=== PATIENT | female | born 1970 | race Caucasian/White ===

== ENCOUNTER → 2023-12-17 10:37 | Outpatient (REF) | payer BC, SELFPAY ==
[2023-12-17 11:55] LABS: Ionized Calcium 1.19 mMOL/L (1.15-1.33)
[2023-12-17 12:06] LABS: % Basophils 0.8 % (0-2); % Eosinophils 1.3 % (0-6); % Immature Granulocytes 0.3 % (0-0.5); % Lymphocytes 40.8 % (20.5-51.1); % Monocytes 7.3 % (1.7-9.3); % Neutrophils 49.5 % (42.2-75.2); Absolute Eosinophils 0.1 10^3/uL (0-0.7); Absolute Lymphocytes 1.6 10^3/uL (1.2-3.4); Absolute Monocytes 0.3 10^3/uL (0.1-0.6); Hematocrit 38.5 % (37.0-47.0); Hemoglobin 12.9 g/dL (12.0-16.0); Mean Corp Hgb Conc. 33.5 g/dL (33.0-37.0); Mean Corpuscular Hgb 29.2 pg (27.0-31.0); Mean Corpuscular Volume 87.1 fL (81.0-99.0); Mean Platelet Volume 10.2 fL (7.4-10.4); Nucleated Red Blood Cells % 0 %; Platelet Count 191 10^3/uL (130-400); Red Blood Cell Count 4.42 10^6/uL (4.20-5.40); Red Cell Dist. Width 12.6 % (11.5-14.5)
[2023-12-17 14:02] LABS: ALT (SGPT) 17 U/L (0-35); AST (SGOT) 24 U/L (14-36); Albumin 4.3 g/dl (3.5-5.0); Alkaline Phosphatase 85 U/L (38-126); Blood Urea Nitrogen 19 mg/dl (7-17); Calcium 9.6 mg/dl (8.4-10.2); Carbon Dioxide 25 mmol/L (22-30); Chloride 105 mmol/L (98-107); Direct Bilirubin 0.4 mg/dl (0.0-0.4); Glucose 126 mg/dl (70-99); HDL Cholesterol 40 mg/dl; Iron 103 ug/dl (37-170); LDL Cholesterol, Calculated 83 mg/dl; Potassium 3.9 mmol/L (3.5-5.1); Sodium 141 mmol/L (135-145); Total Bilirubin 0.6 mg/dl (0.2-1.3); Total Cholesterol 145 mg/dl (50-199); Total Protein 6.7 g/dl (6.3-8.2); Triglyceride 113 mg/dl (10-149); Very Low Density Lipoprotein 22 mg/dl (0-30); eGFR > 60.00
[2023-12-17 14:37] LABS: Vitamin D, 25-OH*** 47.9 ng/mL (30-80)
[2023-12-17 14:51] LABS: TSH Reflex To Free T4 1.87 uIU/ml (0.47-4.68)
[2023-12-17 14:55] LABS: Ferritin 25.9 ng/ml (11.1-264.0)
[2023-12-17 15:27] LABS: Folate 14.7 ng/ml (2.76-20); Vitamin B12 259 pg/ml (239-931)
[2023-12-19 12:23] LABS: Intact PTH 60.6 pg/ml (13.6-85.8)
== END ==
LOC: HWLAB 10:37
PROVIDERS: ATTENDING PHYSICIAN Nurse Practitioner Adult Health
DX: Z86.39 Personal history of other endocrine, nutritional and metabolic disease (principal); Z98.84 Bariatric surgery status; K76.0 Fatty (change of) liver, not elsewhere classified; I10 Essential (primary) hypertension; E78.5 Hyperlipidemia, unspecified; G47.33 Obstructive sleep apnea (adult) (pediatric); E53.8 Deficiency of other specified B group vitamins; R10.13 Epigastric pain
CPT/HCPCS: 36415; 80053; 80061; 82248; 82306; 82330; 82607; 82728; 82746; 83540; 83970; 84425; 84443; 85025

== ENCOUNTER 2024-02-24 08:48 | Emergency (ER) | payer BC, SELFPAY ==
[2024-02-24 08:48] VITALS: BMI 27.3
[2024-02-24 08:54] VITALS: BP 120/87
--- NOTE | 2024-02-24 09:09 | ED.GENMED ---
History of Present Illness
<Cherrie Manriquez PA-C - Last Filed: 02/24/24 17:01>
General
Chief Complaint: Visual Problem
Source: patient
Exam Limitations: none
Time Seen by Provider: 02/24/24 09:06
Nursing documentation reviewed up to this point in time: agreed with
History of Present Illness
History of Present Illness:
This is a 53 y/o female with a PMH of migraines presenting emergency department today with floaters in her left visual field. 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
lower visual field of her left eye. Patient compares this to ocean waves. Patient states that this then started to happen in the upper half of her vision in her left eye as well. This lasted around 20 minutes. Patient feels there is some blurry
vision in general with this as well. Patient feels well now, no longer has any visual complaints. Patient denies any eye pain, any headaches. Patient states that she used to get migraines and she would feel right side eye pain with this but she
has not had a migraine 10 years. Denies any history of hypertension or hyperlipidemia. Denies any nausea or vomiting, paresthesias, dizziness, light headedness, neck pain, abdominal pain, fevers or chills, chest pain or shortness of breath. This
is never happened to patient before. Patient has no history of visual issues. 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
Past History
<Cherrie Manriquez PA-C - Last Filed: 02/24/24 17:01>
Past History
ED Past Medical History: None
ED Past Surgical History: None
Social History
Tobacco: Non-smoker
Alcohol: None
Drug: None
Living: with family
Review of Systems
<Cherrie Manriquez PA-C - Last Filed: 02/24/24 17:01>
Review of Systems
All Other Systems: ROS reviewed and negative except as documented in HPI and ROS
Phy Exam
<Cherrie Manriquez PA-C - Last Filed: 02/24/24 17:01>
Physical Exam
Physical Exam:
Vitals: Vital signs are stable
General: Patient is well appearing and in no acute distress; non-toxic
Skin: Warm and dry, no rashes or lesions
Head: Normocephalic, atraumatic. No temporal artery tenderness bilaterally.
Eyes: Sclera non-icteric. EOMs intact. PERRLA Patient wears glasses at baseline, visual acuity 20/50 in the right eye and 20/40 in the left eye. Visual field testing intact.
Cardiac: Regular rate and rhythm, no murmus
Peripheral Vascular: No carotid bruits bilaterally. No lower extremity swelling or edema
Pulm: Normal respiratory effort
Neuro: CN II-XII intact, no focal neurologic deficits. 5/5 strength in bilateral upper and lower extremities. Finger to nose testing intact.
Psychiatric: Appropriate mood and affect.
Course
<Cherrie Manriquez PA-C - Last Filed: 02/24/24 17:01>
Orders/Labs/Results
Orders:
Orders
02/24/24 09:41
CT Head & Neck Angio W/wo IV Urgent
Reason For Exam: transient left sided visual loss
02/24/24 10:02
Complete Blood Count/With Diff Urgent
Comprehensive Metabolic Panel Urgent
Sed Rate [Erythrocyte Sed Rate] Urgent
Abnormal Lab Results
02/24/24
10:02
RBC 3.93 L 10^6/uL
(4.20-5.40)
Hgb 11.5 L g/dL
(12.0-16.0)
Hct 35.2 L %
(37.0-47.0)
MCHC 32.7 L g/dL
(33.0-37.0)
BUN 20 H mg/dl
(7-17)
Total Protein 6.2 L g/dl
(6.3-8.2)
02/24/24 10:02
02/24/24 10:02
Vital Signs
Initial and Last Documented VS:
Initial Vital Signs
Temp Pulse Resp BP Pulse Ox
98.0 F 58 16 120/87 98
02/24/24 08:54 02/24/24 08:54 02/24/24 08:54 02/24/24 08:54 02/24/24 08:54
Last Documented Vital Signs
Temp Pulse Resp BP Pulse Ox
98.0 F 59 20 118/72 98
02/24/24 08:54 02/24/24 11:00 02/24/24 11:00 02/24/24 11:00 02/24/24 11:00
<Ritesh Russo MD - Last Filed: 02/24/24 09:55>
Orders/Labs/Results
Orders:
Orders
02/24/24 09:41
CT Head & Neck Angio W/wo IV Urgent
Reason For Exam: transient left sided visual loss
02/24/24 10:02
Complete Blood Count/With Diff Urgent
Comprehensive Metabolic Panel Urgent
Sed Rate [Erythrocyte Sed Rate] Urgent
Abnormal Lab Results
02/24/24
10:02
RBC 3.93 L 10^6/uL
(4.20-5.40)
Hgb 11.5 L g/dL
(12.0-16.0)
Hct 35.2 L %
(37.0-47.0)
MCHC 32.7 L g/dL
(33.0-37.0)
BUN 20 H mg/dl
(7-17)
Total Protein 6.2 L g/dl
(6.3-8.2)
02/24/24 10:02
02/24/24 10:02
Vital Signs
Initial and Last Documented VS:
Initial Vital Signs
Temp Pulse Resp BP Pulse Ox
98.0 F 58 16 120/87 98
02/24/24 08:54 02/24/24 08:54 02/24/24 08:54 02/24/24 08:54 02/24/24 08:54
Last Documented Vital Signs
Temp Pulse Resp BP Pulse Ox
98.0 F 59 20 118/72 98
02/24/24 08:54 02/24/24 11:00 02/24/24 11:00 02/24/24 11:00 02/24/24 11:00
<Cherrie Manriquez PA-C - Last Filed: 02/24/24 17:01>
MDM/Problems Addressed
Differential Diagnosis Includes:
ddx include amaurosis fugax, carotid stenosis, ocular migraine, complex migraine, closed angle glaucoma
MDM/Problems Addressed:
Transient visual changes:
53-year-old female with past medical history of migraines presenting to the emergency department today with concerns of left-sided transient visual changes/scotoma. This lasted around 20 minutes. Considering this, CTA angio of head and neck was
obtained which is negative for any acute occlusion or significant stenosis of the carotid arteries. No evidence for dissection of the arteries. No concern for retinal detachment or acute closure glaucoma considering patient's symptoms were
transient and patient has no eye pain. CBC and CMP unremarkable, ESR within normal limits. Patient stable for discharge, return precautions discussed, ophthalmology referral given.
Chronic conditions affecting care:
History of migraines, history of gastric bypass surgery
Acute Exacerbation and/or Progression of Chronic Illness:
n/a
<Cherrie Manriquez PA-C - Last Filed: 02/24/24 17:01>
*Pulse Oximetry
Patient hypoxic: no
*Critical Care Note
Total Time (30-74mins, 75-104mins- exclusive of procedures): Not Applicable
Data Reviewed
Review of Other/Old Records Reveals: Records (Reviewed ER physician documentation from 01/02/2013)
Source: patient and records
Further Testing Considered But Not Given:
Considered ocular ultrasound to assess for retinal detachment, however patient no longer has any symptoms
<Cherrie Manriquez PA-C - Last Filed: 02/24/24 17:01>
Patient Management
Escalation/DeEscalation of care consider admission/obs:
Admit not indicated. I discussed this case with my attending Dr. Russo.
ED Attending Note
<Cherrie Manriquez PA-C - Last Filed: 02/24/24 17:01>
-
Portions of this chart may have been created with voice recognition software.� Occasional wrong word or��sound alike� substitutions may have occurred due to the inherent limitations of voice recognition software.
<Ritesh Russo MD - Last Filed: 02/24/24 09:55>
ED Attending Note
Patient seen and examined by attending physician: Yes
I performed the substantive portion of visit, reviewed & personally made and approve the management plan that is documented in note by myself or FANNY.: Yes
ED Attending Note:
53-year-old female sudden onset of monocular focal visual changes to the left eye. This occurred at work. Mostly lower with some decreased vision in waviness. No scotomas no flashing lights no eye pain no temporal pain no other neurologic
symptoms. Symptoms have resolved. She does have remote history of migraines
On exam patient is nontoxic in no distress. Pupils equal and reactive to light extraocular muscles intact. Discharge. No retinal changes noted by my exam. Speech is normal. Grossly nonfocal. No carotid bruit. Heart regular rate and rhythm no
murmur. No respiratory distress
Impression transient visual changes to the left eye. Probably an ocular migraine. However labs and sed rate will be done. Vascular studies. If all negative will refer to ophthalmology for follow-up
Discharge Plan
Departure
Patient Disposition: Home (Routine Discharge)
Date of Disposition: 02/24/24
Time of Disposition: 12:06
Patient with high blood pressure during this ER visit?: No
Condition: Good
Discharge Problem:
Transient visual disturbance
Instructions: Floaters in the Eye, BLOOD PRESSURE
Referrals:
Eleazar Buck MD [Active] - Call in 1-3 days for appt
NONE,* [Family Provider] -
Activity Restrictions/Additional Instructions:
Please follow-up with the attached number for ophthalmology.
Please refer to the emergency department should you experience recurrence of your symptoms, persistent headache, visual loss, lightheadedness, dizziness, chest pain, shortness of breath, weakness, numbness and tingling, or any other concerning signs
or symptoms.
Interventions
Interventions:
*Risk Screen - Suicide Last Done: 02/24/24 10:00
*General Assessment Last Done: 02/24/24 10:00
*Neglect/Abuse Screening Last Done: 02/24/24 10:00
*ED COVID-19 Vaccine History Last Done: 02/24/24 08:54
*Nursing Disposition Last Done: 02/24/24 12:31
ED- Neurological Assessment Last Done: 02/24/24 10:00
ED-EENT Assessment Last Done: 02/24/24 10:00
ED Swallowing Screen Last Done: 02/24/24 10:00
Discharge Date and Time
Discharge Date/Time: 02/24/24 13:27
Print Language: PASHTO
[2024-02-24 10:15] LABS: % Basophils 0.6 % (0-2); % Eosinophils 1.2 % (0-6); % Immature Granulocytes 0.2 % (0-0.5); % Lymphocytes 34.6 % (20.5-51.1); % Monocytes 8.6 % (1.7-9.3); % Neutrophils 54.8 % (42.2-75.2); Absolute Eosinophils 0.1 10^3/uL (0-0.7); Absolute Lymphocytes 1.8 10^3/uL (1.2-3.4); Absolute Monocytes 0.4 10^3/uL (0.1-0.6); Absolute Neutrophils 2.8 10^3/uL (1.4-6.5); Hematocrit 35.2 % (37.0-47.0); Hemoglobin 11.5 g/dL (12.0-16.0); Mean Corp Hgb Conc. 32.7 g/dL (33.0-37.0); Mean Corpuscular Hgb 29.3 pg (27.0-31.0); Mean Corpuscular Volume 89.6 fL (81.0-99.0); Mean Platelet Volume 10.2 fL (7.4-10.4); Nucleated Red Blood Cells % 0 %; Platelet Count 209 10^3/uL (130-400); Red Blood Cell Count 3.93 10^6/uL (4.20-5.40); Red Cell Dist. Width 13.2 % (11.5-14.5); White Blood Cell Count 5.1 10^3/uL (4.8-10.8)
[2024-02-24 10:26] LABS: ALT (SGPT) 14 U/L (0-35); AST (SGOT) 17 U/L (14-36); Alkaline Phosphatase 91 U/L (38-126); Blood Urea Nitrogen 20 mg/dl (7-17); Calcium 9.2 mg/dl (8.4-10.2); Carbon Dioxide 28 mmol/L (22-30); Chloride 107 mmol/L (98-107); Estimated Creatinine Clearance 77 ml/min; Glucose 92 mg/dl (70-99); Potassium 4.4 mmol/L (3.5-5.1); Sodium 139 mmol/L (135-145); Total Bilirubin 0.9 mg/dl (0.2-1.3); Total Protein 6.2 g/dl (6.3-8.2); eGFR > 60.00
[2024-02-24 11:00] VITALS: BP 118/72
[2024-02-24 11:01] LABS: Erythrocyte Sed Rate 14 mm/hour (0-20)
== END 2024-02-24 13:27 | disposition home or self-care (01) ==
LOC: EMR 08:48
PROVIDERS: Physician Assistant; EMERGENCY PHYSICIAN Emergency Medicine
DX: H53.8 Other visual disturbances (principal)
CPT/HCPCS: 99284; 70496; 70498; 80053; 85025; 85652; Q9967

== ENCOUNTER → 2024-10-05 08:59 | Outpatient (REF) | payer BC, SELFPAY ==
[2024-10-05 11:51] LABS: % Basophils 0.6 % (0-2); % Lymphocytes 43.9 % (20.5-51.1); % Monocytes 9.9 % (1.7-9.3); % Neutrophils 43.6 % (42.2-75.2); Absolute Eosinophils 0.1 10^3/uL (0-0.7); Absolute Lymphocytes 1.5 10^3/uL (1.2-3.4); Absolute Monocytes 0.3 10^3/uL (0.1-0.6); Absolute Neutrophils 1.5 10^3/uL (1.4-6.5); Hemoglobin 11.7 g/dL (12.0-16.0); Mean Corp Hgb Conc. 32.5 g/dL (33.0-37.0); Mean Corpuscular Hgb 29.4 pg (27.0-31.0); Mean Corpuscular Volume 90.5 fL (81.0-99.0); Mean Platelet Volume 10.3 fL (7.4-10.4); Nucleated Red Blood Cells % 0 %; Platelet Count 188 10^3/uL (130-400); Red Blood Cell Count 3.98 10^6/uL (4.20-5.40); Red Cell Dist. Width 11.9 % (11.5-14.5); White Blood Cell Count 3.4 10^3/uL (4.8-10.8)
[2024-10-05 13:15] LABS: ALT (SGPT) 13 U/L (0-35); AST (SGOT) 20 U/L (14-36); Albumin 4.2 g/dl (3.5-5.0); Alkaline Phosphatase 65 U/L (38-126); Blood Urea Nitrogen 22 mg/dl (7-17); Calcium 9.2 mg/dl (8.4-10.2); Carbon Dioxide 26 mmol/L (22-30); Chloride 106 mmol/L (98-107); Direct Bilirubin 0.4 mg/dl (0.0-0.4); Glucose 87 mg/dl (70-99); HDL Cholesterol 56 mg/dl; Iron 109 ug/dl (37-170); LDL Cholesterol, Calculated 63 mg/dl; Potassium 4.3 mmol/L (3.5-5.1); Sodium 135 mmol/L (135-145); Total Cholesterol 133 mg/dl (50-199); Total Protein 6.1 g/dl (6.3-8.2); Triglyceride 73 mg/dl (10-149); Very Low Density Lipoprotein 14 mg/dl (0-30); eGFR > 60.00
[2024-10-05 13:30] LABS: Intact PTH 65.7 pg/ml (13.6-85.8)
[2024-10-05 18:06] LABS: Vitamin D, 25-OH*** 40.6 ng/mL (30-80)
[2024-10-05 18:24] LABS: Ferritin 29.8 ng/ml (11.1-264.0)
[2024-10-05 18:55] LABS: Folate > 20.0 ng/ml (2.76-20); Vitamin B12 262 pg/ml (239-931)
== END ==
LOC: HWLAB 08:59
PROVIDERS: ATTENDING PHYSICIAN Nurse Practitioner Adult Health
DX: Z98.84 Bariatric surgery status (principal); K90.9 Intestinal malabsorption, unspecified; R19.7 Diarrhea, unspecified; K76.0 Fatty (change of) liver, not elsewhere classified; I10 Essential (primary) hypertension; E78.5 Hyperlipidemia, unspecified; E53.8 Deficiency of other specified B group vitamins; R10.13 Epigastric pain
CPT/HCPCS: 36415; 80048; 80061; 80076; 82306; 82607; 82728; 82746; 83540; 83970; 85025

== ENCOUNTER 2024-12-06 06:27 | Day surgery (SDC) | payer BC, SELFPAY | END 2024-12-06 14:36 | disposition home or self-care (01) | LOC: GI 06:27 | PROVIDERS: ATTENDING PHYSICIAN Internal Medicine Gastroenterology | DX: Z12.11 Encounter for screening for malignant neoplasm of colon (principal); R19.7 Diarrhea, unspecified; K64.0 First degree hemorrhoids; D12.2 Benign neoplasm of ascending colon; K63.5 Polyp of colon; Z86.0100 Personal history of colon polyps, unspecified | CPT/HCPCS: 45380; 88305 ==

== ENCOUNTER → 2025-03-23 07:35 | Outpatient (REF) | payer BC, SELFPAY | LOC: HWEVLT 07:35 | PROVIDERS: ATTENDING PHYSICIAN Radiology Diagnostic Radiology | DX: I83.893 Varicose veins of bilateral lower extremities with other complications (principal) | CPT/HCPCS: 93970 ==